=== PATIENT | male | born 1975 | race Hispanic/Latino ===

== ENCOUNTER 2018-03-09 21:54 | Emergency (ER) | payer OTHER ==
[2018-03-09] MEDS ORDERED: Proparacaine 0.5% Opth 15 ML BOT ONE ×2 (22:09→22:11)
[2018-03-09] MEDS ORDERED: Enalaprilat Dihydrate 1.25 MG/ML VIAL ONE (23:04)
--- NOTE | 2018-03-09 23:17 | CT ---
CT BRAIN 03/09/18 PROVIDED CLINICAL HISTORY: Vision loss. FINDINGS: The ventricular system appears normal in size and morphology. There is no evidence for intracranial h emorrhage or mass effect. There is partial opacification of the left maxillary sinus. The extracrania l soft tissues and osseous structures appear otherwise unremarkable. IMPRESSION: No evidence for intracranial hemorrhage or mass effect. POS: [facility]
== END 2018-03-10 02:45 | disposition short-term general hospital (02) ==
LOC: NAV ERS 21:54
DX: H54.3 Unqualified visual loss, both eyes (principal); I10 Essential (primary) hypertension; E10.9 Type 1 diabetes mellitus without complications; Z79.4 Long term (current) use of insulin
CPT/HCPCS: 36416; 70450; 96374